=== PATIENT | male | born 1965 | race Caucasian/White ===

== ENCOUNTER 2017-08-15 19:56 | Emergency (ER) | payer SELFPAY ==
[~2017-08-15] VITALS: Ht 177.8 cm; Wt 113.0 kg
[2017-08-15 19:58] VITALS: Ht 177.8 cm; Wt 113.0 kg
--- NOTE | 2017-08-15 20:24 | ERD ---
ER Documentation Chief Complaint Chief Complaint c/o left hand lac. Cut with utility knife. HPI This is a right-hand dominant 52-year-old male who presents with a laceration to the dorsal surface of his left hand that he sustained today while working on the [employer] with his daughter. He now has a laceration at the base of his first and second digits, the bleeding has been controlled. Denies possibility retained foreign body. No numbness or tingling. He states his tetanus vaccination is not up-to-date and he does not these had one within 10 years. ROS All systems reviewed and are negative except as per history of present illness. Allergies Allergies: Coded Allergies: No Known Allergy (Unverified , 11/01/15) PMhx/Soc Medical and Surgical Hx: pt denies Medical Hx, pt denies Surgical Hx Hx Alcohol Use: No Hx Substance Use: No Hx Tobacco Use: No Smoking Status: Never smoker FmHx Family History: No diabetes Physical Exam Vitals Vital Signs Date Time Temp Pulse Resp B/P Pulse Ox O2 Delivery O2 Flow Rate FiO2 08/15/17 19:58 98.5 77 18 186/106 97 Physical Exam Const: [] Head: Atraumatic Eyes: Normal Conjunctiva Resp: Clear to auscultation bilaterally Cardio: Regular rate and rhythm, no murmurs Skin: Right hand dorsal surface along the base of the second metatarsal there is a linear laceration approximately cm in length, no evidence of foreign body , patient has full range of motion in the hand is able to make a fist and oppose thumb to all digits, capillary refill less than 2 seconds Results 24 hrs Current Medications Medications (Trade) Dose Ordered Sig/[place] Route PRN Reason Start Time Stop Time Status Last Admin Dose Admin Diphtheria/ Tetanus/Acell Pertussis (Adacel) 0.5 ml ONCE ONCE IM* 08/15/17 20:30 08/15/17 20:31 DC 08/15/17 20:39 Lidocaine HCl (Lidocaine 1% (Mdv) 10 ml) 10 ml ONCE STAT INJ 08/15/17 20:32 08/15/17 20:33 DC 08/15/17 20:40 Procedures/MDM Patient has had a laceration. He was given tetanus vaccination. The skin edges of the laceration were infiltrated with 1% lidocaine . The laceration was irrigated with copious amounts of normal saline. The wound was prepped with Betadine. On examination under direct light, there was no foreign body seen. The laceration was repaired with simple interrupted sutures. 2 sutures total using 3-0 Prolene. After repair, there was no continuing bleeding on repair and there did not appear to be any complication related to repair. The patient tolerated the procedure well and the wound was appropriately dressed and bandaged. I recommended the patient return in 2 days for a wound check and 7-10 days for removal of sutures. Patient counseled regarding my diagnostic impression and care plan. Prior to discharge all questions answered. Pt agrees with treatment plan and understands strict return precautions. Pt is instructed to follow up with primary care provider within 24-48 hours. Precautionary instructions provided including instructions to return to the ER if not improving or for any worsening or changing symptoms or concerns. Departure Diagnosis: Primary Impression: Laceration Condition: Stable MACARIO LOCKE PA-C Aug 15, 2017 20:24
[2017-08-15] MEDS ORDERED: DIPHTH/TET/ACEL PERTUSS (ADULT) 0.5 ML VIAL IM* ONE (20:30)
[2017-08-15] MEDS ORDERED: LIDOCAINE 1% (MDV) 10 ML INJ INJ STA (20:32)
== END 2017-08-15 20:52 | disposition home or self-care (01) ==
LOC: FTE 19:56
DX: S61.411A Laceration without foreign body of right hand, initial encounter (principal); W26.0XXA Contact with knife, initial encounter; Y92.89 Other specified places as the place of occurrence of the external cause
CPT/HCPCS: 90471; 90715